=== PATIENT | female | born 1955 | race Caucasian/White ===

== ENCOUNTER 2017-03-07 06:06 | Day surgery (SDC) | payer OTHER ==
--- NOTE | ~2017-03-07 | EGD ---
EGD REPORT [facility] [address] [address] NAME: LAURY LANDIN : [birth year] STATUS : REG [facility]#: [id number] AGE: 62 ADM/REG DATE : 03/07/17 MR#: [id number] REPORT SERV DATE: 03/07/17 DICTATED BY: CONRAD NORWOOD DATE: 03/07/17 REPORT STATUS : Draft [facility]ANS[facility]IBED BY: [facility] DATE: 03/07/17 Endoscopy Center Patient Name: Laury Landin. Date of : 1955 Attending MD: CONRAD NORWOOD MD Procedure Date No Time: 03/07/2017 Procedure: Upper GI endoscopy Indications: Dysphagia, Heartburn, Suspected esophageal reflux Referring MD: DONALD MEDINA Medicines: as per anesthesia Complications: No immediate complications. Procedure: Pre-Anesthesia Assessment: - ASA Grade Assessment: III - A patient with severe systemic disease. After obtaining informed consent, the endoscope was passed under direct vision. Throughout the procedure, the patient's blood pressure, pulse, and oxygen saturations were monitored continuously. The GIF H190 [id number] was introduced through the mouth, and advanced to the third part of duodenum. The upper GI endoscopy was accomplished without difficulty. The patient tolerated the procedure. Findings: A mild Schatzki ring (acquired) was found at the gastroesophageal junction. The scope was withdrawn. Dilation was performed with a Urias dilator with no resistance at 44 Fr. A small hiatus hernia was present. The examined duodenum was normal. Impression: - Mild Schatzki ring. Dilated. - Hiatus hernia. - Normal examined duodenum. Recommendation: - Follow an antireflux regimen. - Continue present medications. Procedure Code(s): --- Professional --- 53971, Esophagogastroduodenoscopy, flexible, transoral; diagnostic, including collection of specimen(s) by brushing or washing, when performed (separate procedure) 29885, Dilation of esophagus, by unguided sound or bougie, single or multiple passes Diagnosis Code(s): --- Professional --- EGD REPORT [facility] [address] [address] NAME: LAURY LANDIN : [birth year] [place]US [place] [facility] [place] [id number] AGE: 62 ADM/REG DATE : 03/07/17 MR#: [id number] REPORT SERV DATE: 03/07/17 DICTATED BY: CONRAD NORWOOD. DATE: 03/07/17 REPORT STATUS : Draft TRANSCRIBED BY: [employer] DATE: 03/07/17 K22.2, Esophageal obstruction K44.9, Diaphragmatic hernia without obstruction or gangrene R13.10, Dysphagia, unspecified R12, Heartburn CPT copyright 2013 [employer]. All rights reserved. The codes documented in this report are preliminary and upon medical records coder review may be revised to meet current compliance requirements. CONRAD NORWOOD MD 03/07/2017 8:12 AM This report has been signed electronically. Number of Addenda: 0 Note Initiated On: 03/07/2017 7:56 AM Scope Withdrawal Time 0 hours 0 minutes 0 seconds [address] [facility] [place] [address]
--- NOTE | ~2017-03-07 | EGD ---
EGD REPORT [facility] [address] [address] NAME: LAURY LANDIN : [birth year] STATUS : REG [facility]#: [id number] AGE: 62 ADM/REG DATE : 03/07/17 MR#: [id number] REPORT SERV DATE: 03/07/17 DICTATED BY: CONRAD NORWOOD DATE: 03/07/17 REPORT STATUS : Draft [facility]ANSCRIBED BY: [facility] DATE: 03/07/17 Endoscopy Center Patient Name: Laury Landin. Date of : 1955 Attending MD: CONRAD NORWOOD MD Procedure Date No Time: 03/07/2017 Procedure: Colonoscopy Indications: Screening for colorectal malignant neoplasm Referring MD: DONALD MEDINA Medicines: as per anesthesia Complications: No immediate complications. Procedure: Pre-Anesthesia Assessment: - ASA Grade Assessment: III - A patient with severe systemic disease. After I obtained informed consent, the scope was passed under direct vision. Throughout the procedure, the patient's blood pressure, pulse, and oxygen saturations were monitored continuously. The PCF [id number] was introduced through the anus and advanced to the cecum, identified by appendiceal orifice and ileocecal valve. The colonoscopy was performed without difficulty. The patient tolerated the procedure. The quality of the bowel preparation was adequate to identify polyps. Findings: The perianal and digital rectal examinations were normal. A few small-mouthed diverticula were found in the sigmoid colon, in the descending colon and in the transverse colon. Internal hemorrhoids were found during endoscopy and were mild. Impression: - Diverticulosis in the sigmoid colon, in the descending colon and in the transverse colon. - Internal hemorrhoids. Recommendation: - Repeat colonoscopy in 10 years for surveillance. Procedure Code(s): --- Professional --- 21076, Colonoscopy, flexible, proximal to splenic flexure; diagnostic, with or without collection of specimen(s) by brushing or washing, with or without colon decompression (separate procedure) Diagnosis Code(s): --- Professional --- K64.8, Other hemorrhoids K57.30, Diverticulosis of large intestine without EGD REPORT [facility] [address] [address] NAME: LAURY LANDIN : [birth year] STATUS : REG [facility] [place] PAT#: [id number] AGE: 62 ADM/REG DATE : 03/07/17 MR#: [id number] REPORT SERV DATE: 03/07/17 DICTATED BY: CONRAD NORWOOD. DATE: 03/07/17 REPORT STATUS : Draft TRANSCRIBED BY: [employer] DATE: 03/07/17 perforation or abscess without bleeding Z12.11, Encounter for screening for malignant neoplasm of colon CPT copyright 2013 [employer]. All rights reserved. The codes documented in this report are preliminary and upon motor overhauler review may be revised to meet current compliance requirements. CONRAD NORWOOD MD 03/07/2017 8:27 AM This report has been signed electronically. Number of Addenda: 0 Note Initiated On: 03/07/2017 7:54 AM Scope Withdrawal Time 0 hours 6 minutes 23 seconds [id number] [id number]
[~2017-03-07 06:06] MED LIST: ALEVE220 MG; PRILO PO; PRIN20 PO
== END 2017-03-07 23:59 | disposition home or self-care (01) ==
LOC: DMU 06:06
PROVIDERS: Internal Medicine Gastroenterology
PROC: 0DJD8ZZ Inspection of Lower Intestinal Tract, Via Natural or Artificial Opening Endoscopic (ICD-10-PCS; principal; 2017-03-07 07:30)
PROC: 0D747ZZ Dilation of Esophagogastric Junction, Via Natural or Artificial Opening (ICD-10-PCS; 2017-03-07 07:30)
DX: Z12.11 Encounter for screening for malignant neoplasm of colon (principal); K64.8 Other hemorrhoids; K57.30 Diverticulosis of large intestine without perforation or abscess without bleeding; K22.2 Esophageal obstruction; K44.9 Diaphragmatic hernia without obstruction or gangrene; R13.10 Dysphagia, unspecified; R12 Heartburn; I10 Essential (primary) hypertension; H26.9 Unspecified cataract; I34.1 Nonrheumatic mitral (valve) prolapse; G47.33 Obstructive sleep apnea (adult) (pediatric); M41.9 Scoliosis, unspecified; K21.9 Gastro-esophageal reflux disease without esophagitis; Z41.1 Encounter for cosmetic surgery; Z98.51 Tubal ligation status; Z79.899 Other long term (current) drug therapy